=== PATIENT | male | born 1970 | race Caucasian/White ===

== ENCOUNTER → 2016-12-26 | Day surgery (SDC) | payer BC ==
[~2016-12-26] MED LIST: DEPO-TESTOT200 MG/ML IM; HYDROCODON-ACE1 EAC5 PO; LAMICTAL100 MG PO; LAMISIL250 MG PO; MOBIC15 MG PO; NAPROXEN250 MG PO; NUVIGIL250 MG PO; PAXIL PO; TRAMADOL HCL50 M2 PO
--- NOTE | ~2016-12-26 | OR ---
Unit #: [id number] #: [id number] Patient: URMILA BENITEZ [id number] [address] [address] [id number] O MR#: [id number] NAME: URMILA BENITEZ ROOM: Date of Procedure: 12/26/2016 Admission Date: 12/26/2016 Surgeon: Tj Stacy M.D. : 1970 Attending Physician: Tj Stacy M.D. Primary Care Physician: Zca Blum M.D. OPERATIVE REPORT PREOPERATIVE DIAGNOSES Herniated nucleus pulposus, radiculopathy, back pain. POSTOPERATIVE DIAGNOSES Herniated nucleus pulposus, radiculopathy, back pain. PROCEDURE PERFORMED Lumbar epidural steroid injection with fluoroscopic guidance for needle localization. INDICATIONS FOR PROCEDURE The patient is a 46-year-old male with return of back and right leg pain, paresthesia, numbness with dorsiflexion, weakness due to disk herniation to the right L4-L5 and L5-S1 level, which is an abnormal EMG consistent with radiculopathy in the right S1. Epidural steroid injections were last completed approximately 8 months ago. He did very well for about 6 to 7 months. Based on history, pathology, symptomatology, and response to treatment, plan is to repeat an epidural steroid injection today. DESCRIPTION OF PROCEDURE The patient was placed in a seated position. Standard monitors were applied. Sterile prep and drape of the lumbar area was performed. The skin then at the L5 level was localized with 1% lidocaine. An 18-gauge [employer] [place] needle was then advanced via loss of resistance technique and fluoroscopic guidance in toward the epidural space. After confirming proper positioning with fluoroscopy and radiographic contrast, 80 mg of Depo-Medrol and 4 mL of preservative-free normal saline were deposited. The patient tolerated the procedure otherwise well and was discharged to the recovery room in stable condition. Dictated by... Dakota GuardadoP/erikl TD: 12/27/2016 02:01 JOB #: [id number] Unit #: [id number] #: [id number] Patient: URMILA BENITEZ OPERATIVE REPORT Page 1 of 1 X Tj Stacy MD X PROCEDURE OPERATIVE NOTE
== END | disposition home or self-care (01) ==
LOC: CCSC 11:05
DX: M51.17 Intervertebral disc disorders with radiculopathy, lumbosacral region (principal)
CPT/HCPCS: J1040; J2250

== ENCOUNTER → 2017-01-09 | Day surgery (SDC) | payer BC ==
--- NOTE | ~2017-01-09 | OR ---
Unit #: [id number] #: [id number] Patient: URMILA BENITEZ [id number] [address] [address] [id number] O MR#: [id number] NAME: URMILA BENITEZ ROOM: Date of Procedure: 01/09/2017 Admission Date: 01/09/2017 Surgeon: Tj Stacy M.D. : 1970 Attending Physician: Tj Stacy M.D. Primary Care Physician: Zac Blum M.D. OPERATIVE REPORT POSTOPERATIVE DIAGNOSES Herniated nucleus pulposus, back pain, radiculopathy. POSTOPERATIVE DIAGNOSES Herniated nucleus pulposus, back pain, radiculopathy. PROCEDURE PERFORMED Lumbar epidural steroid injection. INDICATIONS FOR PROCEDURE The patient is a 46-year-old male with return of back and right lower extremity pain, paresthesia, and numbness. He has known disk herniations to the right at the L4-L5 and L5-S1 levels. He was treated medically with p.r.n. epidural steroid injections. Last injection was done in 03/2016 and 04/2016. He generally requires 2 or 3 things to settle. Repeat injection done 2 weeks ago resulted about 50% settling of his symptom complex. We are going to proceed with a second injection today to determine the need for third injection. DESCRIPTION OF PROCEDURE The patient was placed in a seated position. Standard monitors were applied. Sterile prep and drape of the lumbar area was performed. The skin at the L5-S1 level was localized with 1% lidocaine. An 18-gauge [employer] needle was then advanced via loss of resistance technique and fluoroscopic guidance in toward the epidural space. After confirming proper positioning with fluoroscopy and radiographic contrast, 80 mg of Depo-Medrol and 4 mL of preservative-free normal saline were deposited. The patient tolerated the procedure otherwise well and was discharged to recovery room in stable condition. Dictated by... Dakota Guardado/stephanie TD: 01/09/2017 16:02 JOB #: [id number] Unit #: [id number] #: [id number] Patient: URMILA BENITEZ OPERATIVE REPORT Page 1 of 1 X Tj Stacy MD X PROCEDURE OPERATIVE NOTE
== END | disposition home or self-care (01) ==
LOC: CCSC 08:52
DX: M51.16 Intervertebral disc disorders with radiculopathy, lumbar region (principal)
CPT/HCPCS: J1040; J2250

== ENCOUNTER → 2017-01-30 | Day surgery (SDC) | payer BC ==
--- NOTE | ~2017-01-30 | OR ---
Unit #: [id number] #: [id number] Patient: URMILA BENITEZ [id number] [address] [place], [place] [address] [id number] O MR#: [id number] NAME: URMILA BENITEZ ROOM: Date of Procedure: 01/30/2017 Admission Date: 01/30/2017 Surgeon: Tj Stacy M.D. : 1970 Attending Physician: Tj Stacy M.D. Primary Care Physician: Zac Blum M.D. OPERATIVE REPORT PREOPERATIVE DIAGNOSES Herniated nucleus pulposus, back pain, radiculopathy. POSTOPERATIVE DIAGNOSES Herniated nucleus pulposus, back pain, radiculopathy. PROCEDURE PERFORMED Lumbar epidural steroid injection. INDICATIONS FOR PROCEDURE The patient is 46-year-old male with return of back and right lower extremity pain, paresthesia, and numbness. He has large right-sided disk extrusion at the L4-L5 level, compression at the right L4 nerve root. He also has a right-sided herniation at L5-S1 level. The patient has been treated with p.r.n. epidural steroid injections. Generally, he requires a series. It gave the most significant settling of his symptom complex. He had a series in 03/2016 and 04/2016. He had 2 injections at this point almost month and a half. He has gotten additive improvement. He is not back down to his usual baseline. Based on his history, pathology, symptomatology, and response, we are going to proceed with a final injection today. DESCRIPTION OF PROCEDURE The patient was placed in a seated position. Standard monitors were applied. Sterile prep and drape of the lumbar area was performed. The skin then at the L5 level was localized with 1% lidocaine. An 18-gauge eXelat[employer] needle was then advanced via loss of resistance technique and fluoroscopic guidance in toward the epidural space. After confirming proper positioning with fluoroscopy and radiographic contrast, 80 mg of Depo-Medrol and 4 mL of preservative-free normal saline were deposited. The patient tolerated the procedure otherwise well and was discharged to the recovery room in stable condition. Dictated by... Tj Stacy M.D. LHP/modl TD: 01/30/2017 17:21 Unit #: [id number] #: [id number] Patient: URMILA BENITEZ JOB #: [id number] OPERATIVE REPORT Page 1 of 1 X Tj Stacy MD X PROCEDURE OPERATIVE NOTE
== END | disposition home or self-care (01) ==
LOC: CCSC 09:03
DX: M51.17 Intervertebral disc disorders with radiculopathy, lumbosacral region (principal); M51.16 Intervertebral disc disorders with radiculopathy, lumbar region; M06.9 Rheumatoid arthritis, unspecified; Z79.891 Long term (current) use of opiate analgesic; Z79.899 Other long term (current) drug therapy
CPT/HCPCS: J1040